=== PATIENT | male | born 1985 | race African-American/Black ===

== ENCOUNTER 2020-09-09 23:12 | Emergency (ER) | payer BC, OTHER ==
--- NOTE | 2020-09-09 23:14 | EDM.PDOC ---
ED HPI GENERAL MEDICAL PROBLEM - General Chief Complaint: Upper Extremity Injury/Pain Stated Complaint: BILAT HAND INJURY Time Seen by Provider: 09/09/20 23:13 Source of Information: Reports: Patient, Old Records ([facility] EMR. No paper hospital chart available.) History Limitations: Reports: No Limitations - History of Present Illness INITIAL COMMENTS - FREE TEXT/NARRATIVE: Patient was brought to the emergency room via transport vehicle from [facility] for evaluation of a Workmen's Compensation injury, which occurred at about 10 PM this evening. The patient did apply ice packs to the area of his hands bilaterally, however no other treatment or medications prior to arrival. He has not injured these hands in the past and is right-handed. Note that the patient accidentally caught both of his hands/fingers between a part and a press. No history of paresthesias, neurological deficits, foreign body, or other complaints or injuries. No recent history of abdominal pain, heartburn, nausea, diarrhea, melena, gross hematochezia, or any food intolerance, including fatty foods, etc.. The patient also denies any recent fever, cough, wheezing, dyspnea, etc.. Onset: Today, Sudden Onset Date: 09/09/20 Onset Time: 22:00 Duration: Constant Location: Reports: Upper Extremity, Left, Upper Extremity, Right. 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 [No Known Home Meds] 08/21/14 [History] Past Medical History Cardiovascular History: Reports: None. Denies: Heart Murmur, Hypertension Gastrointestinal History: Reports: None. Denies: GERD Musculoskeletal History: Reports: None. Denies: Arthritis, Fracture, Osteoarthritis - Past Surgical History HEENT Surgical History: Reports: Oral Surgery, Other (See Below) Other HEENT Surgeries/Procedures: Iva teeth extraction x4 at age 19. GI Surgical History: Reports: None. Denies: Appendectomy, Cholecystectomy, Hernia, Inguinal, Hernia Repair/Other Male Surgical History: Reports: Circumcision, Other (See Below). Denies: Vasectomy Other Male Surgeries/Procedures: Circumcision as an . Social & Family History - Tobacco Use Tobacco Use Status *Q: Current Every Day Tobacco User Tobacco Use Within Last Twelve Months: Cigarettes Years of Tobacco use: 10 Packs/Tins Daily: 1 Packs/Tins Daily Comment: Started smoking at age 25. Used Tobacco, but Quit: No Smoking Cessation Information Provided To Patient: Yes Second Hand Smoke Exposure: No Second Hand Smoke Education Provided: No - Living Situation & Occupation Living situation: Reports: Single (Never . 1 son), Alone Occupation: Employed ([employer] at [employer] 40 Females) Review of Systems - Review of Systems Review Of Systems: Comprehensive ROS is negative, except as noted in HPI. ED EXAM, GENERAL - Physical Exam Exam: See Below Exam Limited By: No Limitations General Appearance: Alert, WD/WN, No Apparent Distress Head: Atraumatic, Normocephalic Neck: Normal Inspection, Supple, Non-Tender, Full Range of Motion. No: Lymphadenopathy (L), Lymphadenopathy (R), Thyromegaly Respiratory/Chest: No Respiratory Distress, Lungs Clear, Normal Breath Sounds, No Accessory Muscle Use, Chest Non-Tender. No: Pleural Rub, Retractions Cardiovascular: Normal Peripheral Pulses, Regular Rate, Rhythm, No Edema, No Gallop, No JVD, No Murmur, No Rub. No: Gallop/S3, Gallop/S4, Friction Rub Peripheral Pulses: 2+: Radial (L), Radial (R), Dorsalis Pedis (L), Dorsalis Pedis (R) GI/Abdominal: Normal Bowel Sounds, Soft, Non-Tender, No Organomegaly, No Diste ntion, No Abnormal Bruit, No Mass, Pelvis Stable. No: Guarding (Male) Exam: Penile Lesions Rectal (Males) Exam: Deferred Back Exam: Normal Inspection, Full Range of Motion. No: CVA Tenderness (L), CVA Tenderness (R), Muscle Spasm Extremities: No Pedal Edema, Limited Range of Motion (Mild secondary to discomfort), Other (Mild swelling of digits #1-4 with additional mild ecchymosis of the hands bilaterally with no direct evidence of crepitation, deformity, etc. 0.5 cm superficial laceration over extensor surface the PIP of digit #2 of the right hand with foreign body or evidence of significant tendon, nerve, or vascular involvement.). No: Joint Swelling, Rambo's Sign Neurological: Alert, Oriented, CN II-XII Intact, Normal Cognition, Normal Gait, No Motor/Sensory Deficits Psychiatric: Normal Affect Skin Exam: Ecchymosis (As above), Wound/Incision (As above). No: Diaphoretic Lymphatic: No Adenopathy Course - Vital Signs Last Recorded V/S: Last Vital Signs Temp 36.3 C 09/09/20 23:15 Pulse 68 09/09/20 23:15 Resp 16 09/09/20 23:15 BP 150/80 H 09/09/20 23:15 Pulse Ox 100 09/09/20 23:15 Vital Signs - 24 hr 09/09/20 23:15 Temperature [ 36.3 C Temporal] Pulse, 68 Peripheral [ Pulse Oximetry] Respiratory 16 Rate Blood Pressure 150/80 H [Left Upper Arm ] O2 Sat by Pulse 100 Oximetry - Orders/Labs/Meds Orders: Active Orders 24 hr Category Date Time Status Vaccines to be Administered [RC] PER UNIT ROUTINE Care 09/09/20 23:23 Ordered Hand Comp Min 3V Bi [CR] Stat Exams 09/09/20 23:14 Ordered Obtain Past Medical Record [OM.PC] Routine Oth 09/09/20 23:14 Active Labs: None Meds: Medications Discontinued Medications Generic Name Dose Route Start Last Admin Trade Name Curry PRN Reason Stop Dose Admin Diphtheria/Tetanus/Acell Pertussis 0.5 ml 09/09/20 23:23 09/09/20 23:33 Boostrix IM 09/09/20 23:24 0.5 ml .ONCE ONE Administration Neomycin/Polymyxin/Bacitracin 1 each 09/09/20 23:23 09/09/20 23:34 Triple Antibiotic Oint TOP 09/09/20 23:24 1 each ONETIME ONE Administration - Radiology Interpretation Free Text/Narrative:: X-rays of the hands bilaterally, complete, shows no evidence of fracture, dislocation, foreign body, etc. Departure - Departure Time of Disposition: 23:45 Disposition: Home, Self-Care 01 Condition: Good Clinical Impression: Laceration, Tobacco abuse counseling, Contusion, Elevated blood pressure reading - Discharge Information *PRESCRIPTION DRUG MONITORING PROGRAM REVIEWED*: Not Applicable *COPY OF PRESCRIPTION DRUG MONITORING REPORT IN PATIENT REMY: Not Applicable Instructions: Health Risks of Smoking, Contusion, [id number], Laceration Care, Adult, [id number], Steps to Quit Smoking Referrals: PCP,None [Primary Care Provider] - Forms: ED Department Discharge, ED Return to Work/School Form Additional Instructions: 1. Followup with your regular provider in 7 days as directed with x-rays of your hands bilaterally depending on your symptoms at that time. Bring these discharge instructions with you to that visit. 2. Tylenol 650 mg by mouth every 4 hours and/or OTC ibuprofen 2-3 tabs by mouth every 6 hours with food as directed./needed. You may stagger these medications for 48-72 hours only, which essentially means that you are receiving a pain medication about every 2 hours. 3. Antibacterial soap wash/soak with subsequent antibacterial dressing such as Neosporin, etc. as directed 2 times per day until the wound or laceration site completely heals. Keep the area clean and dry with activity restrictions as discussed. Never use hydrogen peroxide for wound care. 4. Ice packs and hand elevation as directed/needed 5. Stop all tobacco use HEAVENLY as directed/per provided information and consider contacting Quit LIne, etc.. 6. Work excuse- See Form 7. 10 pound initial lifting restriction with your hands bilaterally with advanced activity as tolerated. 8. Immediately after this visit verify that your cellular telephone's voicemail has been activated and is empty. Also verify that your home telephone's answering machine is operating properly and has space to receive messages. Note that it is sometimes necessary for us to be able to contact you at a later date to discuss your medical care. 9. Please remember that we are ALWAYS here for you and want to answer any questions you may have. Feel free to call the hospital any time and we call you back HEAVENLY. Sepsis Event Note (ED) - Focused Exam Vital Signs: Vital Signs Temp Pulse Resp BP Pulse Ox 09/09/20 23:15 36.3 C 68 16 150/80 H 100 - Problem List & Annotations (1) Contusion SNOMED Code(s): 977067056 Code(s): T14.8XXA - OTHER INJURY OF UNSPECIFIED BODY REGION, INITIAL ENCOUNTER Status: Acute Priority: High Current Visit: Yes Onset Date: 09/09/20 Annotation/Comment:: Symptomatic relief as per discharge instructions for his moderate bilateral hand contusions. Workmen's Compensation forms and Over 40 Females work excuse were completed. Activity restrictions were discussed. Qualifiers: Encounter type: initial encounter Contusion area: hand Laterality: unspecified laterality Qualified Code(s): S60.229A - Contusion of unspecified hand, initial encounter (2) Laceration SNOMED Code(s): 384272418 Code(s): YXF0775 - Status: Acute Priority: High Current Visit: Yes Onset Date: 09/09/20 Annotation/Comment:: TDAP given. Neosporin dressing applied by the nurse. Laceration does not require repair. (3) Tobacco abuse counseling SNOMED Code(s): 561405990, 657312100, 922574174 Code(s): Z71.6 - TOBACCO ABUSE COUNSELING Status: Chronic Priority: Medium Current Visit: Yes Annotation/Comment:: Tobacco cessation strongly encouraged with information provided at discharge. (4) Elevated blood pressure reading SNOMED Code(s): 14176997 Code(s): R03.0 - ELEVATED BLOOD-PRESSURE READING, W/O DIAGNOSIS OF HTN Status: Acute Priority: Medium Current Visit: Yes Onset Date: 09/09/20 Annotation/Comment:: Mild blood pressure elevation likely secondary to his discomfort. No previous history of hypertension. Observe for now. - Problem List Review Problem List Initiated/Reviewed/Updated: Yes - My Orders Last 24 Hours: My Active Orders 09/09/20 23:14 Hand Comp Min 3V Bi [CR] Stat Obtain Past Medical Record [OM.PC] Routine 09/09/20 23:23 Vaccines to be Administered [RC] PER UNIT ROUTINE - Assessment/Plan Last 24 Hours: My Active Orders 09/09/20 23:14 Hand Comp Min 3V Bi [CR] Stat Obtain Past Medical Record [OM.PC] Routine 09/09/20 23:23 Vaccines to be Administered [RC] PER UNIT ROUTINE Assessment:: As above Plan: As above. Extensive precautions were given to the patient, who is in agreement with the treatment plan. See Patient Instructions for further treatment and plan.
[2020-09-09] MEDS ORDERED: Diphtheria,Pertussis(Acell),Tetanus Vaccine 0.5 ML Syringe IM ONE (23:23)
[2020-09-09] MEDS ORDERED: Bacitracin/Neomycin/Polymyxin B Oint 0.9 GM U/D Packet TOP ONE (23:23)
== END 2020-09-09 23:50 | disposition home or self-care (01) ==
LOC: LL.ED 23:12
DX: S61.210A Laceration without foreign body of right index finger without damage to nail, initial encounter (principal); S60.222A Contusion of left hand, initial encounter; S60.221A Contusion of right hand, initial encounter; R03.0 Elevated blood-pressure reading, without diagnosis of hypertension; Z23 Encounter for immunization; Z71.6 Tobacco abuse counseling; F17.210 Nicotine dependence, cigarettes, uncomplicated; W23.0XXA Caught, crushed, jammed, or pinched between moving objects, initial encounter; Y99.0 Civilian activity done for income or pay
CPT/HCPCS: 73130-50; 90471; 90715; 99283